=== PATIENT | female | born 1990 | race Caucasian/White ===

== ENCOUNTER 2018-03-18 16:29 | Emergency (ER) | payer OTHER, MEDICAID ==
[2018-03-18 16:34] VITALS: BP 128/93
--- NOTE | 2018-03-18 16:44 | EDPHY ---
H & P Time Seen by Provider: 03/18/18 16:42 HPI/ROS: CHIEF COMPLAINT: Skin avulsion middle digit HISTORY OF PRESENT ILLNESS: 27-year-old female was at work using a mandolin slicer when she sustained skin avulsion to the distal phalanx of her left middle digit. Tetanus is up-to-date. No paresthesia. This was accidental. PHYSICAL EXAM (Prior to examination, patient consented to physical exam, hands were washed and my usual and customary physical exam procedures followed) 1) GENERAL: Well-developed, well-nourished, alert and oriented. Appears to be in no acute distress. 2) HEAD: Normocephalic 3) HEENT: sclera anicteric 4) LUNGS: Breathing comfortably. 5) SKIN: Left middle digit distal phalanx palmar aspect superficial skin avulsion with slow capillary bleed. 6) MUSCULOSKELETAL: FDP FDS intact. 7) NEUROLOGIC: Full sensation Smoking Status: Never smoked Constitutional: Initial Vital Signs Temperature (C) 36.8 C 03/18/18 16:31 Heart Rate 68 03/18/18 16:31 Respiratory Rate 16 03/18/18 16:31 Blood Pressure 128/93 H 03/18/18 16:31 O2 Sat (%) 98 03/18/18 16:31 O2 Delivery Mode Room Air Allergies/Adverse Reactions: Penicillins Allergy (Mild, Verified 03/18/18 16:34) Rash Home Medications: Medication Instructions Recorded Doxycycline Hyclate [Vibramycin 100 mg PO 03/18/18 100 MG (*)] Lisinopril [Zestril 20 mg (*)] 20 mg PO 03/18/18 MDM/Departure - MDM Procedures: Procedure: Digital nerve block. The affected digit was anesthetized using 0.5% bupivicaine without epinephrine digital nerve block. After anesthetic administered the patient was observed for a period of time and had no apparent adverse effects. Wound will be cleansed and dressed with Surgicel - Depart Disposition: Home, Routine, Self-Care Clinical Impression: Avulsion of skin of finger Qualifiers: Encounter type: initial encounter Qualified Code(s): S61.209A - Unspecified open wound of unspecified finger without damage to nail, initial encounter Condition: Good Instructions: Skin Avulsion (ED) Additional Instructions: Return to the ER if you develop redness, swelling, discharge, warmth to the wound, red streaks going up your arm or any other symptoms that concern you. Stand Alone Forms: Work Comp Follow Up Referrals: Follow-up, with your work comp provider in 2 days [Other] - As per Instructions
== END 2018-03-18 17:19 | disposition home or self-care (01) ==
PROC: 3E0T3BZ Introduction of Anesthetic Agent into Peripheral Nerves and Plexi, Percutaneous Approach (ICD-10-PCS; principal; 2018-03-18)
DX: S61.203A Unspecified open wound of left middle finger without damage to nail, initial encounter (principal); W29.0XXA Contact with powered kitchen appliance, initial encounter; Y99.0 Civilian activity done for income or pay; Y93.89 Activity, other specified